=== PATIENT | male | born 1960 | race Asian ===

== ENCOUNTER 2019-07-01 11:01 | Emergency (ER) | payer BC, OTHER ==
[2019-07-01 11:17] VITALS: BP 147/83; PULSE 94; TEMP 99.2; BMI 26.4
--- NOTE | 2019-07-01 11:47 | PDOC ---
History of Present Illness - General Chief Complaint: Cold Symptoms Stated Complaint: FEELS COLD Time Seen by Provider: 07/01/19 11:42 - History of Present Illness Initial Comments: 07/01/19 11:45 58-year-old male with a past medical history of hypertension presents for chills at night x2 days no other symptoms Past History - Past Medical History Allergies/Adverse Reactions: Allergies Allergy/AdvReac Type Severity Reaction Status Date / Time No Known Allergies Allergy Verified 07/01/19 11:17 COPD: No Diabetes: Yes HTN: Yes - Immunization History Immunization Up to Date: No - Psycho Social/Smoking Cessation Hx Smoking History: Never smoked Have you smoked in the past 12 months: No Information on smoking cessation initiated: No Hx Alcohol Use: No Drug/Substance Use Hx: No Review of Systems - Review of Systems Constitutional: Yes: Chills. No: Diaphoresis, Fever, Malaise, Night Sweats HEENTM: No: Nose Congestion Respiratory: No: Cough Cardiac (ROS): No: Chest Pain *Physical Exam - Vital Signs Last Vital Signs Temp Pulse Resp BP Pulse Ox 99.2 F 94 H 16 147/83 98 07/01/19 11:15 07/01/19 11:15 07/01/19 11:15 07/01/19 11:15 07/01/19 11:15 - Physical Exam 07/01/19 11:45 GENERAL: The patient is awake, alert, and fully oriented, in no acute distress. HEAD: Normal with no signs of trauma. EYES: sclera anicteric, conjunctiva clear. ENT: Ears normal tympanic membranes normal oropharynx clear uvula midline NECK: Normal range of motion LUNGS: Breath sounds equal, clear to auscultation bilaterally. No wheezes, and no crackles. HEART: S1 and S2 without murmur, rub or gallop. ABDOMEN: Soft, nontender, normoactive bowel sounds. No guarding, no rebound. No masses. EXTREMITIES: Normal range of motion, no edema. No clubbing or cyanosis. No cords, erythema, or tenderness. NEUROLOGICAL: Cranial nerves II through XII grossly intact. PSYCH: Normal mood, normal affect. SKIN: Warm, Dry, normal turgor, no rashes or lesions noted. Medical Decision Making - Medical Decision Making 07/01/19 11:46 Patient advised to follow-up with PCP I have reviewed the pathophysiology with the patient. They are in agreement with the treatment plan all questions were answered to their satisfaction. Understanding for follow-up without fail was also conveyed to the patient. Again they are in agreement. Discharge - Discharge Information Problems reviewed: Yes Clinical Impression/Diagnosis: Chills (without fever) Condition: Stable Disposition: HOME - Admission No - Follow up/Referral Referrals: Rachel Marie MD [Primary Care Provider] - - Patient Discharge Instructions Additional Instructions: Follow-up with your primary care physician without fail in 1 to 2 days for further evaluation and treatment options and return to the emergency room should you have further issues. - Post Discharge Activity
== END 2019-07-01 11:51 | disposition home or self-care (01) ==
LOC: JERFT 11:01
DX: R68.83 Chills (without fever) (principal); I10 Essential (primary) hypertension; E11.9 Type 2 diabetes mellitus without complications
CPT/HCPCS: 99281-25

== ENCOUNTER 2021-08-15 12:00 | Emergency (ER) | payer BC, OTHER ==
[2021-08-15 12:31] VITALS: TEMP 98.8; BMI 24.8
[2021-08-15] MEDS ORDERED: FAMOTIDINE 20 MG/50 ML IVPB 20 MG/50 ML MG IVPB ONE (14:44)
[2021-08-15] MEDS ORDERED: MAG HYDROX/AL HYDROX/SIMETH -MYLANTA- ORAL SUSPENSION PO ONE (14:44)
[2021-08-15] MEDS ORDERED: MAG HYDROX/AL HYDROX/SIMETH 30 ML UNIT-DOSE CUP ONE (14:58)
[2021-08-15] MEDS ORDERED: FAMOTIDINE 10 MG/ML VIAL IVPB ONE (14:58)
[2021-08-15 15:24] LABS: BASO % 0.7 % (0-2.0); EOS % 0.5 % (0-4.5); HEMATOCRIT 40.8 % (35.4-49); HEMOGLOBIN 14.2 GM/dL (11.7-16.9); LYMPH % 20.6 % (8-40); MCH 30.1 pg (25.7-33.7); MCHC 34.7 g/dl (32.0-35.9); MEAN CELL VOLUME 86.6 fl (80-96); MEAN PLT VOLUME 8.1 fl (7.5-11.1); MONO % 6.6 % (3.8-10.2); NEUT % 71.6 % (42.8-82.8); PLATELET COUNT 218 10^3/uL (134-434); RBC 4.71 M/mm3 (4.00-5.60); RDW 14.1 % (11.9-15.9); WHITE BLOOD COUNT 7.4 K/mm3 (4.0-10.0)
[2021-08-15 15:33] LABS: INR 1.07 (0.83-1.09); PROTHROMBIN TIME (PATIENT) 12.3 SEC (9.7-13.0)
[2021-08-15 15:36] LABS: ACTIVATED PTT 32.1 SECONDS (25.2-36.5)
[2021-08-15 15:52] LABS: BLOOD UREA NITROGEN 13.5 mg/dL (7-18); CALCIUM 9.6 mg/dL (8.5-10.1)
[2021-08-15 15:54] LABS: CREATININE 0.7 mg/dL (0.55-1.3)
[2021-08-15 15:57] LABS: BILIRUBIN,TOTAL 0.7 mg/dL (0.2-1); TOT PROT 8.1 g/dl (6.4-8.2)
[2021-08-15 18:37] VITALS: BP 127/77; PULSE 89
== END 2021-08-15 18:37 | disposition home or self-care (01) ==
LOC: JER 12:00
PROC: 3E033GC Introduction of Other Therapeutic Substance into Peripheral Vein, Percutaneous Approach (ICD-10-PCS; principal; 2021-08-15)
DX: R07.9 Chest pain, unspecified (principal)
CPT/HCPCS: 36415; 71045-TC-FY; 80053; 82550; 82553; 84484; 85025; 85610; 85730; 93005; 93010; 99285-25